=== PATIENT | male | born 1955 | race Caucasian/White ===

== ENCOUNTER → 2017-10-09 | Outpatient (CLI) | payer MEDICAID ==
[~2017-10-09] MED LIST: ACET325T14 PO; ALBU18HF INH; ASPI-650 PO; BUPR-86 PO; CALC200T3 PO; FLUT1DIS3 INH; PALI6TAB3 PO; PRED10TA PO; TIOT18CA INH; TRAZ50TA18 PO
== END | disposition home or self-care (01) ==
LOC: CFH 12:13
PROVIDERS: ATTEND Internal Medicine
DX: J94.1 Fibrothorax (principal); E65 Localized adiposity
CPT/HCPCS: 71250

== ENCOUNTER 2017-10-21 15:21 | Emergency (ER) | payer MEDICAID ==
[~2017-10-21] VITALS: Ht 170.2 cm; Wt 95.0 kg
[2017-10-21] MEDS ORDERED: SODIUM CHLORIDE 0.9% 1,000ML IVBOLUS ONE (16:30)
[2017-10-21 17:15] LABS: BASOPHILS # (AUTO) 0.04 x10^3/uL (0-0.1); BASOPHILS % (AUTO) 0 % (0-1); EOSINOPHILS % (AUTO) 3 % (1-7); LYMPHOCYTES # (AUTO) 2.08 x10^3/uL (1-3.4); LYMPHOCYTES % (AUTO) 23 % (22-44); MD NO; MEAN CORPUSCULAR HEMOGLOBIN 32.3 pg (27.5-34.5); MEAN CORPUSCULAR HGB CONC 34.2 g/dL (33.2-36.2); MEAN CORPUSCULAR VOLUME 94.4 fL (81-97); MONOCYTES # (AUTO) 0.59 x10^3/uL (0.2-0.8); MONOCYTES % (AUTO) 7 % (2-9); NEUTROPHILS # (AUTO) 6.07 x10^3/uL (1.8-6.8); NEUTROPHILS % (AUTO) 67 % (42-75); PLATELET COUNT 183 x10^3/uL (130-400); RED BLOOD COUNT 5.13 x10^6/uL (4.38-5.82); RED CELL DISTRIBUTION WIDTH 13.1 % (9.4-14.8)
[2017-10-21 17:25] LABS: ALANINE AMINOTRANSFERASE 63 U/L (12-78); ALBUMIN 3.9 g/dL (3.4-5.0); ANION GAP 7 mmol/L (5-15); CALCIUM 8.7 mg/dL (8.5-10.1); CHLORIDE 109 mmol/L (98-107); CREATININE 1.24 mg/dL (0.7-1.3)
[2017-10-21 17:28] LABS: ALKALINE PHOSPHATASE 55 U/L (45-117); TOTAL PROTEIN 7.5 g/dL (6.4-8.2)
[2017-10-21 19:16] VITALS: BP 100/68
== END 2017-10-21 20:20 | disposition home or self-care (01) ==
LOC: ED 19:45
DX: S83.412A Sprain of medial collateral ligament of left knee, initial encounter (principal); S93.492A Sprain of other ligament of left ankle, initial encounter; I10 Essential (primary) hypertension; J44.9 Chronic obstructive pulmonary disease, unspecified; W19.XXXA Unspecified fall, initial encounter; Y93.01 Activity, walking, marching and hiking; Y92.009 Unspecified place in unspecified non-institutional (private) residence as the place of occurrence of the external cause; Y99.8 Other external cause status
CPT/HCPCS: 36415; 80053; 85025; 93005; 99285

== ENCOUNTER 2017-12-27 12:26 | Emergency (ER) | payer MEDICAID ==
[~2017-12-27] VITALS: Ht 170.2 cm; Wt 91.4 kg
[~2017-12-27 12:26] MED LIST changes: +TRAZ-136 PO; -TRAZ50TA18 PO
[2017-12-27 12:28] VITALS: BP 116/78
[2017-12-27 13:36] LABS: ALBUMIN 3.8 g/dL (3.4-5.0); ANION GAP 7 mmol/L (5-15); CALCIUM 8.7 mg/dL (8.5-10.1); CHLORIDE 107 mmol/L (98-107)
[2017-12-27 13:38] LABS: BASOPHILS # (AUTO) 0.02 x10^3/uL (0-0.1); BASOPHILS % (AUTO) 0 % (0-1); EOSINOPHILS # (AUTO) 0.26 x10^3/uL (0-0.4); EOSINOPHILS % (AUTO) 4 % (1-7); LYMPHOCYTES % (AUTO) 22 % (22-44); MD NO; MEAN CORPUSCULAR HEMOGLOBIN 32.8 pg (27.5-34.5); MEAN CORPUSCULAR HGB CONC 34.9 g/dL (33.2-36.2); MEAN CORPUSCULAR VOLUME 93.9 fL (81-97); MEAN PLATELET VOLUME 8.8 fL (7.4-10.4); MONOCYTES # (AUTO) 0.48 x10^3/uL (0.2-0.8); MONOCYTES % (AUTO) 8 % (2-9); NEUTROPHILS # (AUTO) 4.22 x10^3/uL (1.8-6.8); NEUTROPHILS % (AUTO) 66 % (42-75); PLATELET COUNT 158 x10^3/uL (130-400); RED BLOOD COUNT 4.82 x10^6/uL (4.38-5.82); RED CELL DISTRIBUTION WIDTH 13.4 % (9.4-14.8)
[2017-12-27 13:48] LABS: ALANINE AMINOTRANSFERASE 78 U/L (12-78); ALKALINE PHOSPHATASE 59 U/L (45-117); BILIRUBIN,TOTAL 0.7 mg/dL (0.2-1.0); CHOL/HDL RATIO 7.1; CHOLESTEROL, TOTAL 185 mg/dL (140-239); CREATININE 1.03 mg/dL (0.7-1.3); FREE T4 (FREE THYROXINE) 1.08 ng/dL (0.76-1.46); HDL CHOL % 14 % (26-37); HDL CHOLESTEROL (DIRECT) 26 mg/dL (40-60); LDL CHOLESTEROL,CALCULATED 118 mg/dL (54-169); LDL/HDL RATIO 4.5 (0.5-3.0); PSA SCREEN 0.57 ng/mL (0.00-4.00); THYROID STIMULATING HORMONE 0.994 mIU/L (0.358-3.740); TOTAL PROTEIN 7.3 g/dL (6.4-8.2); TRIGLYCERIDES 207 mg/dL (50-200); VLDL CHOLESTEROL 41 mg/dL (0-25)
== END 2017-12-27 13:37 | disposition home or self-care (01) ==
LOC: ED 13:30
DX: Z00.00 Encounter for general adult medical examination without abnormal findings (principal); I10 Essential (primary) hypertension; J44.9 Chronic obstructive pulmonary disease, unspecified; K75.9 Inflammatory liver disease, unspecified
CPT/HCPCS: 36415; 80053; 80061; 84439; 84443; 85025; 99284; G0103

== ENCOUNTER 2018-05-07 12:18 | Emergency (ER) | payer MEDICAID ==
[~2018-05-07] VITALS: Ht 170.2 cm; Wt 86.9 kg
[~2018-05-07 12:18] MED LIST changes: -TRAZ-136 PO; +TRAZ50TA66 PO
[2018-05-07 12:30] VITALS: BP 109/82
--- NOTE | 2018-05-07 13:13 | NUR ---
Patient/Caregiver given discharge instructions and they have confirmed that they understand the instructions. Patient ambulatory with steady gait.
== END 2018-05-07 13:15 | disposition home or self-care (01) ==
LOC: ED 13:09
DX: R68.89 Other general symptoms and signs (principal); Z00.01 Encounter for general adult medical examination with abnormal findings; I10 Essential (primary) hypertension; J44.9 Chronic obstructive pulmonary disease, unspecified; F17.200 Nicotine dependence, unspecified, uncomplicated
CPT/HCPCS: 36415; 80156; 80175; 82607; 99283

== ENCOUNTER → 2018-05-28 | Outpatient (CLI) | payer MEDICAID | END | disposition home or self-care (01) | LOC: RAD 12:35 | PROVIDERS: ATTEND Nurse Practitioner | DX: M47.816 Spondylosis without myelopathy or radiculopathy, lumbar region (principal); M47.812 Spondylosis without myelopathy or radiculopathy, cervical region; M11.262 Other chondrocalcinosis, left knee; M25.772 Osteophyte, left ankle; M25.572 Pain in left ankle and joints of left foot; M25.562 Pain in left knee; M54.2 Cervicalgia | CPT/HCPCS: 72050; 72110 ==

== ENCOUNTER 2019-03-01 06:58 | Emergency (ER) | payer MEDICAID ==
[~2019-03-01] VITALS: Ht 170.2 cm; Wt 85.0 kg
--- NOTE | 2019-03-01 07:13 | NUR ---
Pt c/o cough for three days worse at night. Pt sitting on gurney at comfort level. Pt states, "If I lay down I can't breathe." Pt connected to NIBP cuff, continous pulse ox monitor, and front desk monitor. Pt states he has a weak and non-productive continous cough. Pt denies fevers. Call light within reach.
[2019-03-01] MEDS ORDERED: ALBUTEROL SULFATE 2.5 MG/3 ML NPPB ONE (07:30)
[2019-03-01] MEDS ORDERED: ALBUTEROL SULFATE 2.5 MG/3 ML ONE (07:38)
[2019-03-01 08:03] VITALS: BP 117/77
[2019-03-01] MEDS ORDERED: ACETAMINOPHEN 500 MG TABLET ONE (08:05)
[2019-03-01 08:12] LABS: BASOPHILS # (AUTO) 0.03 x10^3/uL (0-0.1); BASOPHILS % (AUTO) 0 % (0-1); EOSINOPHILS # (AUTO) 0.45 x10^3/uL (0-0.4); EOSINOPHILS % (AUTO) 6 % (1-7); LYMPHOCYTES # (AUTO) 1.02 x10^3/uL (1-3.4); LYMPHOCYTES % (AUTO) 13 % (22-44); MD NO; MEAN CORPUSCULAR HEMOGLOBIN 31.3 pg (27.5-34.5); MEAN CORPUSCULAR HGB CONC 33.3 g/dL (33.2-36.2); MEAN CORPUSCULAR VOLUME 94.1 fL (81-97); MEAN PLATELET VOLUME 7.9 fL (7.4-10.4); MONOCYTES # (AUTO) 0.64 x10^3/uL (0.2-0.8); MONOCYTES % (AUTO) 8 % (2-9); NEUTROPHILS # (AUTO) 5.48 x10^3/uL (1.8-6.8); NEUTROPHILS % (AUTO) 72 % (42-75); PLATELET COUNT 191 x10^3/uL (130-400); RED BLOOD COUNT 5.16 x10^6/uL (4.38-5.82); RED CELL DISTRIBUTION WIDTH 13.3 % (9.4-14.8)
[2019-03-01 08:19] LABS: ALBUMIN 4.3 g/dL (3.4-5.0); ANION GAP 5 mmol/L (5-15); CALCIUM 9.4 mg/dL (8.5-10.1); CHLORIDE 106 mmol/L (98-107); CREATININE 0.99 mg/dL (0.7-1.3)
[2019-03-01] MEDS ORDERED: ACETAMINOPHEN 500 MG TABLET PO ONE (08:30)
--- NOTE | 2019-03-01 08:52 | NUR ---
Pt states, "My headache is not any better. 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
--- NOTE | 2019-03-01 09:28 | NUR ---
Patient given discharge instructions and they have confirmed that they understand the instructions. Patient ambulatory with steady gait. Pt left with d/c paperwork, prescription, and all personal belongings. NADN. No needs expressed.
== END 2019-03-01 09:30 | disposition home or self-care (01) ==
LOC: ED 08:27
DX: J44.1 Chronic obstructive pulmonary disease with (acute) exacerbation (principal); F17.210 Nicotine dependence, cigarettes, uncomplicated; I10 Essential (primary) hypertension; Z86.19 Personal history of other infectious and parasitic diseases
CPT/HCPCS: 36415; 71046; 80048; 82040; 83880; 85025; 93005; 94640; 99284; J7512; J7613

== ENCOUNTER 2019-03-19 18:28 | Emergency (ER) ==
[~2019-03-19] VITALS: Ht 175.3 cm; Wt 81.0 kg
[2019-03-19] MEDS ORDERED: ALBUTEROL/IPRATROPIUM 2.5MG/0.5MG, 3 ML ONE (19:21)
--- NOTE | 2019-03-19 19:24 | NUR ---
PATIENT TOLERATED MEDICATION DOSAGE WELL. NO NOTED ACUTE DISTRESS. PATIENT WAS PACING AROUND ROOM, STATED THAT HE FELT DIZZY. THE PATIENT WAS GIVEN EDUCATION REGARDING FALLS AND SITTING WHILE DIZZY, NO NOTED EVIDENCE OF LEARNING.
--- NOTE | 2019-03-19 19:28 | NUR ---
PATIENT TAKEN TO XRAY, TOLERATED WELL. PATIENT BACK IN ROOM.
[2019-03-19] MEDS ORDERED: ALBUTEROL/IPRATROPIUM 2.5MG/0.5MG, 3 ML NPPB ONE (19:30)
[2019-03-19 19:41] LABS: BASOPHILS # (AUTO) 0.18 x10^3/uL (0-0.1); BASOPHILS % (AUTO) 2 % (0-1); EOSINOPHILS # (AUTO) 0.29 x10^3/uL (0-0.4); EOSINOPHILS % (AUTO) 3 % (1-7); LYMPHOCYTES # (AUTO) 1.67 x10^3/uL (1-3.4); LYMPHOCYTES % (AUTO) 16 % (22-44); MD NO; MEAN CORPUSCULAR HEMOGLOBIN 32.4 pg (27.5-34.5); MEAN CORPUSCULAR HGB CONC 34.1 g/dL (33.2-36.2); MEAN CORPUSCULAR VOLUME 95.1 fL (81-97); MEAN PLATELET VOLUME 8.6 fL (7.4-10.4); MONOCYTES % (AUTO) 5 % (2-9); NEUTROPHILS # (AUTO) 7.61 x10^3/uL (1.8-6.8); NEUTROPHILS % (AUTO) 74 % (42-75); PLATELET COUNT 188 x10^3/uL (130-400); RED BLOOD COUNT 4.87 x10^6/uL (4.38-5.82); RED CELL DISTRIBUTION WIDTH 12.9 % (9.4-14.8)
[2019-03-19 19:47] LABS: ALANINE AMINOTRANSFERASE 40 U/L (12-78); ALBUMIN 3.5 g/dL (3.4-5.0); ANION GAP 10 mmol/L (5-15); CALCIUM 8.9 mg/dL (8.5-10.1); CHLORIDE 108 mmol/L (98-107); CREATININE 0.97 mg/dL (0.7-1.3)
[2019-03-19 19:50] LABS: ALKALINE PHOSPHATASE 75 U/L (45-117); BILIRUBIN,TOTAL 0.4 mg/dL (0.2-1.0); TOTAL PROTEIN 7.5 g/dL (6.4-8.2)
--- NOTE | 2019-03-19 21:19 | NUR ---
PATIENT GIVEN SANDWHICH, SNACKS, AND A DRINK PER PROVIDER. PATIENT VERBALIZED UNDERSTANDING OF DISCHARGE EDUCATION AND FOLLOW UP CARE. PATIENT IS RESTLESS, STATED "I'M GETTING SLEEPY AND I HAVE TO GO TO GET MEDS, AND GET SOMETHING TO EAT".
[2019-03-19 21:21] VITALS: BP 127/71
== END 2019-03-19 21:22 | disposition home or self-care (01) ==
LOC: ED 20:31
DX: J44.1 Chronic obstructive pulmonary disease with (acute) exacerbation (principal); J20.8 Acute bronchitis due to other specified organisms; J98.4 Other disorders of lung
CPT/HCPCS: 36415; 71046; 80053; 85025; 93005; 94640; 99284; J7512; J7620

== ENCOUNTER 2020-08-01 22:40 | Emergency (ER) | payer MEDICAID ==
[~2020-08-01] VITALS: Ht 170.2 cm; Wt 72.2 kg
[~2020-08-01 22:40] MED LIST changes: -ASPI-650 PO; +ASPI325T20 PO
[2020-08-01] MEDS ORDERED: LIDOCAINE-MPF 1%, 5ML ONE (23:04)
[2020-08-01] MEDS ORDERED: DIPH,PERTUSS(ACELL),TET VAC/PF 0.5 ML IM-VACC ONE (23:30)
[2020-08-02] MEDS ORDERED: SULFAMETH./TRIMETHOPRIM DS 800MG/160MG TABLET PO ONE
[2020-08-02] MEDS ORDERED: CEPHALEXIN 500 MG CAPSULE PO ONE
[2020-08-02] MEDS ORDERED: CEPHALEXIN 500 MG CAPSULE ONE (00:04)
[2020-08-02] MEDS ORDERED: DIPH,PERTUSS(ACELL),TET VAC/PF 0.5 ML IM-VACC ONE (00:05)
[2020-08-02] MEDS ORDERED: SULFAMETH./TRIMETHOPRIM DS 800MG/160MG TABLET ONE (00:05)
[2020-08-02 00:18] VITALS: BP 149/79
--- NOTE | 2020-08-02 00:19 | NUR ---
medicated per emar for finger infection. Reviewed what to watch for (redness/swelling/fevers not improving with abx)
--- NOTE | 2020-08-02 00:24 | NUR ---
PATIENT UNABLE TO FIND [facility] [employer] INTERN CALLING [email or web address]
== END 2020-08-02 00:21 | disposition home or self-care (01) ==
LOC: ED 23:16
DX: L03.113 Cellulitis of right upper limb (principal); M79.644 Pain in right finger(s); J44.9 Chronic obstructive pulmonary disease, unspecified; I10 Essential (primary) hypertension
CPT/HCPCS: 64450; 90471; 90715; 99284